=== PATIENT | male | born 1930 | race Caucasian/White ===

== ENCOUNTER 2017-07-14 05:40 | Day surgery (SDC) | payer MEDICARE, MEDICAID ==
[~2017-07-14] VITALS: Ht 165.1 cm; Wt 65.0 kg
[~2017-07-14 05:40] MED LIST: BROM2.5T3 PO; CARB1TAB73 PO; DIGO125T71 PO; METO-391 PO; OLME5TAB PO; ROPI0.5T5 PO; SIMV80TA5 PO; SODIUM CHLORIDE 0.9% 1,000 ML IV ONE; WARF3TAB59 PO; WARF4TAB72 PO
[2017-07-14] MEDS ORDERED: SODIUM CHLORIDE 0.9% 1,000 ML IV ONE ×3 (06:00→10:57)
[2017-07-14 07:22] LABS: BASOPHILS % (AUTO) 0.9 % (0.0-2.0); EOSINOPHILS % (AUTO) 1.5 % (1.0-6.0); HEMATOCRIT 39.1 % (41-53); HEMOGLOBIN 13.8 g/dL (13.5-17.5); LYMPHOCYTES % (AUTO) 17.5 % (22.0-44.0); MEAN CORPUSCULAR HEMOGLOBIN 32.2 pg (26.0-34.0); MEAN CORPUSCULAR HGB CONC 35.2 G/dL (31.0-37.0); MEAN CORPUSCULAR VOLUME 92 fL (80-100); MONOCYTES # (AUTO) 0.5 K/uL (0.1-1.0); MONOCYTES % (AUTO) 8.8 % (2.0-9.0); NEUTROPHILS # (AUTO) 3.9 K/uL (1.8-7.7); NEUTROPHILS % (AUTO) 71.3 % (40.0-70.0); PLATELET COUNT (AUTO) 126 K/uL (150-450); RED BLOOD CELL COUNT(AUTO) 4.28 MIL/uL (4.50-5.90)
[2017-07-14 07:27] LABS: INR 1.1 (0.9-1.1); PROTHROMBIN TIME 11.8 SEC (9.4-11.6)
[2017-07-14 07:32] LABS: CALCIUM, TOTAL 8.9 mg/dL (8.8-10.5); CREATININE 1.39 mg/dL (0.60-1.30); POTASSIUM 3.9 mmol/L (3.5-5.1)
[2017-07-14 07:38] LABS: ALBUMIN 3.7 g/dL (3.4-5.0); BILIRUBIN,TOTAL 0.7 mg/dL (0.1-1.0); TOTAL PROTEIN, SERUM 6.7 g/dL (6.4-8.2)
[2017-07-14] MEDS ORDERED: LIDOCAINE HCL/PF 1% 30 ML VIAL ONE (07:41)
[2017-07-14] MEDS ORDERED: SODIUM BICARBONATE 50 MEQ/50 ML VIAL ONE (07:41)
[2017-07-14 07:46] VITALS: BP 176/110
[2017-07-14] MEDS ORDERED: MIDAZOLAM HCL 2 MG/2 ML VIAL ONE (08:09)
[2017-07-14] MEDS ORDERED: FentaNYL CITRATE-PF 100 MCG/2 ML VIAL ONE (08:09)
[2017-07-14] MEDS ORDERED: FentaNYL CITRATE-PF 100 MCG/2 ML VIAL IVP ONE (08:30)
[2017-07-14] MEDS ORDERED: MIDAZOLAM HCL 2 MG/2 ML VIAL IVP ONE (08:30)
[2017-07-14] MEDS ORDERED: LIDOCAINE 1% 30 ML/SOD BICARB 8.4% 4 ML SQ ONE (08:30)
[2017-07-14 08:42] VITALS: BP 175/98
[2017-07-14] MEDS ORDERED: APIX5TAB PO (11:21)
[2017-07-14] MEDS ORDERED: CeFAZolin 1 GM/DEXTROSE 50 ML IV ONE ×2 (11:56→12:00)
[2017-07-14] MEDS ORDERED: AmLODIPine BESYLATE 5 MG TABLET PO ONE (12:30)
== END 2017-07-14 13:10 | disposition home or self-care (01) ==
LOC: SURGERY 05:40 → EDSTATUS 07:30 → SURGERY 13:10
PROVIDERS: ATTEND Internal Medicine Cardiovascular Disease
DX: Z45.010 Encounter for checking and testing of cardiac pacemaker pulse generator [battery] (principal); I45.10 Unspecified right bundle-branch block; I48.91 Unspecified atrial fibrillation; I10 Essential (primary) hypertension; I25.89 Other forms of chronic ischemic heart disease; I24.8 Other forms of acute ischemic heart disease; E78.5 Hyperlipidemia, unspecified; M17.0 Bilateral primary osteoarthritis of knee; I25.10 Atherosclerotic heart disease of native coronary artery without angina pectoris; G20 Parkinson's disease; I25.2 Old myocardial infarction; Z79.01 Long term (current) use of anticoagulants; Z87.891 Personal history of nicotine dependence; Z86.74 Personal history of sudden cardiac arrest; Z98.890 Other specified postprocedural states; Z79.899 Other long term (current) drug therapy
CPT/HCPCS: 33227; 36415; 80053; 85025; 85610; 85730; 88300; 93005; C1786; J0690; J2250; J3010; J3490 ×2; J7030; 33212

== ENCOUNTER 2019-11-12 21:32 | Emergency (ER) | payer MEDICARE, MEDICAID ==
[~2019-11-12] VITALS: Ht 167.6 cm; Wt 68.0 kg
[~2019-11-12 21:32] MED LIST changes: +APIX5TAB PO; -BROM2.5T3 PO; +BROM2.5T4 PO; -ROPI0.5T5 PO; +ROPI0.5T7 PO; -SIMV80TA5 PO; +SIMV80TA91 PO; -SODIUM CHLORIDE 0.9% 1,000 ML IV ONE; -WARF3TAB59 PO; -WARF4TAB72 PO
[2019-11-12 22:53] VITALS: BP 110/82
== END 2019-11-13 00:38 | disposition home or self-care (01) ==
LOC: EMS 21:32
DX: K59.00 Constipation, unspecified (principal); I10 Essential (primary) hypertension; Z79.899 Other long term (current) drug therapy
CPT/HCPCS: 93005; Z7502